=== PATIENT | male | born 1995 | race Caucasian/White ===

== ENCOUNTER 2019-01-25 19:39 | Emergency (ER) | payer OTHER ==
[~2019-01-25] VITALS: Ht 182.9 cm; Wt 81.8 kg
[~2019-01-25 19:39] MED LIST: ADVIL200 MG OR; BENTYL10 MG PO; TORADOL PO
[2019-01-25] MEDS ORDERED: TRAMADOL HYDROC50 M1 PO (21:14)
[2019-01-25 21:25] VITALS: BP 115/74
== END 2019-01-25 21:25 | disposition home or self-care (01) | DRG 605 ==
LOC: ED 19:39
DX: S50.11XA Contusion of right forearm, initial encounter (principal); S40.021A Contusion of right upper arm, initial encounter; V86.55XA Driver of 3- or 4- wheeled all-terrain vehicle (ATV) injured in nontraffic accident, initial encounter